=== PATIENT | female | born 1970 | race Caucasian/White ===

== ENCOUNTER 2018-10-05 18:17 | Emergency (ER) | payer MEDICAID ==
[~2018-10-05] VITALS: Ht 170.2 cm; Wt 87.2 kg
[2018-10-05 18:28] VITALS: Ht 170.2 cm; Wt 87.2 kg
--- NOTE | 2018-10-05 22:33 | ERD ---
ER Documentation Chief Complaint Chief Complaint Cough x 2 weeks HPI 48-year-old female with a history of lupus and asthma presents with cough for 2 weeks. In addition she states that she is having some congestion. States that she has been taking her albuterol and it has been helping. Requesting refill of albuterol. Denies hemoptysis, fevers, chills, nausea, vomiting, diarrhea, abdominal pain, chest pain, leg swelling, recent travel. Extensive allergies, see list. ROS All systems reviewed and are negative except as per history of present illness. Medications Home Meds Active Scripts Dextromethorphan Hb-Promethazine Hcl* (Promethazine DM* Syrup) 473 Ml Syrup, 5 ML PO Q6 PRN for COUGH, #4 OZ Prov:FREDDIE JAVED 10/05/18 Albuterol Sulfate* (Ventolin HFA*) 18 Gm Hfa.aer.ad, 2 PUFF INHALATION Q4H, #1 INHALER Prov:SAPPHIREFREDDIE RICHARDSON 10/05/18 Allergies Allergies: Coded Allergies: Digitalis Glycosides (Verified Allergy, Unknown, 10/05/18) Penicillins (Verified Allergy, Unknown, 10/05/18) aspirin (Verified Allergy, Unknown, 10/05/18) morphine (Verified Allergy, Unknown, 10/05/18) Uncoded Allergies: RIBOXIN (Allergy, Unknown, 10/05/18) PMhx/Soc History of Surgery: Yes (shoulders) Anesthesia Reaction: No Hx Neurological Disorder: No Hx Respiratory Disorders: No Hx Cardiac Disorders: No Hx Psychiatric Problems: No Hx Miscellaneous Medical Probl: Yes (lupus, fibriomyalgia) Hx Alcohol Use: Yes Hx Substance Use: No Hx Tobacco Use: No Smoking Status: Never smoker FmHx Family History: No diabetes, No coronary disease, No other Physical Exam Vitals Vital Signs Date Temp Pulse Resp B/P (MAP) Pulse Ox O2 O2 Flow FiO2 Time Delivery Rate 10/05/18 97.1 86 16 152/84 100 18:28 (106) Physical Exam General: Well developed, well nourished. No acute distress. Eyes: PERRLA. EOM's intact. No icterus, lesions, injection, or edema. Ears: Auricles nontender, with no erythema, lesions, or masses bilaterally. TMs pearly sifuentes with + cone of light and no bulging or fluid lines bilaterally. Auditory canal patent with no discharge or impaction bilaterally. Landmarks appreciated bilaterally. Nose: Septum midline. Turbinates pink and moist. No lesions, polyps, or nasal discharge bilaterally. Throat: No tonsillar erythema, edema, or exudates noted bilaterally. No masses, lesions, or abscesses noted. Uvula midline. Airway patent. Mouth: Mucus membranes moist. No drooling, ulcers, bleeding, or lesions, noted. Neck: No lymphadenopathy noted. Tracheal midline, no goiter or nodules noted. No JVD. Heart: RR w/o murmur, rubs, or gallops. Lungs: Clear to auscultation bilaterally w/o wheezes, crackles, rhonchi. Symmetric rise and fall. Equal breath sounds. Abdomen: Soft, nontender, with no rigidity or guarding noted. No masses, lesions, or ecchymoses. Normoactive bowel sounds. No McBurney's point tenderness. Patient ambulatory. No tenderness to palpation in splenic area or splenomegaly. No CVA tenderness. Extremities: No lower extremity edema, erythema or tenderness to palpation. Psych: Normal mood and affect. Results 24 hrs Laboratory Tests Test 10/05/18 22:42 POC Beta HCG, Qualitative NEGATIVE Procedures/MDM DIAGNOSTIC IMAGING REPORT Patient: DARREN MERCHANT : 1970 Age: 48 Sex: F MR #: [id number] DOS: 10/05/18 2213 Ordering MD: FREDDIE JAVED Location: [facility] Room/Bed: PROCEDURE: XR Chest. CLINICAL INDICATION: Shortness of breath. Cough TECHNIQUE: Single AP portable chest. COMPARISON: No prior Chest x-ray FINDINGS: The cardiomediastinal silhouette is within normal limits of size. The lungs are clear without pleural effusion or focal consolidation. No pneumothorax. The osseous structures and soft tissues are unremarkable. IMPRESSION: 1. No evidence for active cardiopulmonary disease. RPTAT:AAJJ Physician Carlie Date Time Electronically viewed and signed by Physician Carlie on 10/05/2018 23:00 BO/ CC: FREDDIE JAVED [id number] MDM: 48-year-old female with a history of lupus and asthma presents with cough for 2 weeks. In addition she states that she is having some congestion. States that she has been taking her albuterol and it has been helping. Requesting refill of albuterol. Denies hemoptysis, fevers, chills, nausea, vomiting, diarrhea, abdominal pain, chest pain, leg swelling, recent travel. Chest x-ray was performed and results within normal limits.. Patient does not meet criteria for d-dimer testing. Therefore low suspicion for pulmonary embolism. Exam was within normal limits and patient not appear to be wheezing or any type of respiratory distress. In addition she is vitals were normal state of health ER course. I have low suspicion for tubercolosis, pneumonia, pleural effusion, acute heart failure, foreign body aspiration, pulmonary embolism, pneumothorax, or other emergent etiology. Patients O2 sat is normal and is not having difficulty breathing, therefore patient is fit for discharge. Patient discharged with rx for albuterol and promethazine DM and advised to follow up with PMD. Patient discharged with strict ER precautions. All questions answered at discharge. Departure Diagnosis: Primary Impression: Cough Condition: Stable FREDDIE JAVED Oct 05, 2018 22:33
[2018-10-05] MEDS ORDERED: D-ME473S2 PO (22:34)
[2018-10-05] MEDS ORDERED: ALBU18HF INHALATION (22:34)
[2018-10-06 00:09] VITALS: BP 130/80; PULSE 114; RESP 20
== END 2018-10-06 00:11 | disposition home or self-care (01) ==
LOC: FTE 18:17
DX: R05 Cough (principal); J45.909 Unspecified asthma, uncomplicated
CPT/HCPCS: 71045; 81025; Z7502